=== PATIENT | female | born 1995 | race Two or more races ===

== ENCOUNTER 2016-11-28 21:41 | Emergency (ER) | payer SELFPAY ==
[~2016-11-28] VITALS: Ht 157.5 cm; Wt 51.0 kg
[~2016-11-28 21:41] MED LIST: NAPR60CR2
[2016-11-28] MEDS ORDERED: SODIUM CHLORIDE 0.9% 1,000 ML IV ONE (22:56)
[2016-11-28 23:35] LABS: BASOPHILS % 0.6 % (0.0-2.0); EOSINOPHILS % 2.3 % (0.0-5.0); HEMOGLOBIN. 11.2 g/dL (12.0-16.0); LYMPHOCYTES % 45.4 % (20.0-50.0); MEAN CORPUSCULAR HEMOGLOBIN 30.4 pg (28.0-32.0); MEAN CORPUSCULAR VOLUME 89.7 fL (81.0-99.0); MEAN PLATELET VOLUME 8.2 fl (7.4-10.4); MONOCYTES % 9.5 % (2.0-8.0); NEUTROPHILS % 42.2 % (40.0-76.0); PLATELET 295 x1000/uL (130-400); RED BLOOD CELL COUNT 3.68 mill/uL (4.2-5.4); RED CELL DISTRIBUTION WIDTH 13.5 % (11.6-14.6)
[2016-11-28 23:36] LABS: B-HCG QUANTITATIVE < 1 mIU/mL (<3); CARBON DIOXIDE 25 mEq/L (21-32); CHLORIDE 109 mEq/L (98-107)
[2016-11-29 00:03] LABS: HCG SCREEN NEGATIVE
[2016-11-29] MEDS ORDERED: KETOROLAC 30MG/ML VIAL IV ONE (02:00)
[2016-11-29 02:25] VITALS: BP 118/78
== END 2016-11-29 02:25 | disposition home or self-care (01) ==
LOC: ER 21:41
DX: N93.9 Abnormal uterine and vaginal bleeding, unspecified (principal); R10.2 Pelvic and perineal pain; F17.200 Nicotine dependence, unspecified, uncomplicated; Z98.890 Other specified postprocedural states
CPT/HCPCS: 36415; 76830; 76856; 80048; 84702; 84703; 85025; 86850; 86900; 86901; 96361; 96374; 99285; J1885; J7030; Z7610

== ENCOUNTER 2017-05-09 08:00 | Emergency (ER) | payer SELFPAY ==
[~2017-05-09] VITALS: Ht 165.1 cm; Wt 57.0 kg
[2017-05-09] MEDS ORDERED: KETOROLAC 30MG/ML VIAL IM ONE (10:45)
[2017-05-09 10:58] VITALS: BP 120/93
== END 2017-05-09 11:19 | disposition home or self-care (01) ==
LOC: ER 08:17
DX: M54.9 Dorsalgia, unspecified (principal); R11.2 Nausea with vomiting, unspecified; R19.7 Diarrhea, unspecified
CPT/HCPCS: 96372; 99283; J1885

== ENCOUNTER 2018-03-12 19:51 | Emergency (ER) | payer MEDICAID ==
[~2018-03-12] VITALS: Ht 157.5 cm; Wt 46.0 kg
[2018-03-13 01:02] LABS: BASOPHILS % 0.5 % (0.0-2.0); EOSINOPHILS % 1.4 % (0.0-5.0); HEMATOCRIT. 36.9 % (36.0-48.0); HEMOGLOBIN. 12.3 g/dL (12.0-16.0); LYMPHOCYTES % 38.4 % (20.0-50.0); MEAN CORPUSCULAR HEMOGLOBIN 31.7 pg (28.0-32.0); MEAN PLATELET VOLUME 8.3 fl (7.4-10.4); MONOCYTES % 9.7 % (2.0-8.0); PLATELET 323 x1000/uL (130-400); RED BLOOD CELL COUNT 3.89 mill/uL (4.2-5.4); RED CELL DISTRIBUTION WIDTH 14.2 % (11.6-14.6)
[2018-03-13 01:12] LABS: CHLORIDE 106 mEq/L (98-107)
[2018-03-13 01:19] LABS: HCG SCREEN NEGATIVE
[2018-03-13 03:13] VITALS: BP 115/66
== END 2018-03-13 03:18 | disposition home or self-care (01) ==
LOC: ER 19:51
DX: R06.02 Shortness of breath (principal); R10.0 Acute abdomen; R03.0 Elevated blood-pressure reading, without diagnosis of hypertension; F17.210 Nicotine dependence, cigarettes, uncomplicated; Z71.6 Tobacco abuse counseling
CPT/HCPCS: 36415; 71045; 81025; 83880; 84484; 84703; 85379; 93005; 99285; 99406

== ENCOUNTER 2018-04-13 14:07 | Emergency (ER) | payer MEDICAID ==
[~2018-04-13] VITALS: Ht 162.6 cm; Wt 55.0 kg
[2018-04-13] MEDS ORDERED: ACETAMINOPHEN 650MG/20.3ML UDC PO ONE (15:00)
[2018-04-13] MEDS ORDERED: LIDOCAINE HCL/EPINEPHRINE 1%-EPI 1:100,000 20 ML VIAL INFIL ONE (15:00)
[2018-04-13] MEDS ORDERED: HYDROCODONE/ACETAMINOPHEN 5/325MG TABLET PO ONE (15:00)
[2018-04-13 16:34] LABS: HCG SCREEN NEGATIVE
[2018-04-13] MEDS ORDERED: MORPHINE SULFATE 10 MG/ML CPJ IM ONE (19:00)
[2018-04-13] MEDS ORDERED: KETOROLAC 60MG/2ML VIAL IM ONE (19:00)
[2018-04-13 22:50] VITALS: BP 102/63
== END 2018-04-13 22:50 | disposition home or self-care (01) ==
LOC: ER 14:07
DX: S02.2XXA Fracture of nasal bones, initial encounter for closed fracture (principal); S01.81XA Laceration without foreign body of other part of head, initial encounter; M54.2 Cervicalgia; Z98.890 Other specified postprocedural states; Y08.89XA Assault by other specified means, initial encounter; Y93.89 Activity, other specified; Y92.89 Other specified places as the place of occurrence of the external cause; Y99.8 Other external cause status
CPT/HCPCS: 12011; 70486; 70490; 71045; 84703; 96372; 99284; J1885; J2270; J3490

== ENCOUNTER 2018-12-11 11:11 | Emergency (ER) | payer MEDICAID ==
[~2018-12-11] VITALS: Ht 157.5 cm; Wt 46.0 kg
[2018-12-11] MEDS ORDERED: IBUPROFEN 600MG TABLET PO ONE (12:45)
[2018-12-11 13:10] VITALS: BP 98/69
== END 2018-12-11 13:27 | disposition home or self-care (01) ==
LOC: ER 11:11
DX: R23.8 Other skin changes (principal); S60.464A Insect bite (nonvenomous) of right ring finger, initial encounter; W57.XXXA Bitten or stung by nonvenomous insect and other nonvenomous arthropods, initial encounter; Y93.89 Activity, other specified; Y92.89 Other specified places as the place of occurrence of the external cause; F17.210 Nicotine dependence, cigarettes, uncomplicated
CPT/HCPCS: 99282

== ENCOUNTER 2018-12-12 16:20 | Emergency (ER) | payer MEDICAID ==
[~2018-12-12] VITALS: Ht 167.6 cm; Wt 48.0 kg
[2018-12-12 16:38] VITALS: BP 108/80
== END 2018-12-12 18:35 | disposition home or self-care (01) ==
LOC: ER 16:20
DX: T88.0XXA Infection following immunization, initial encounter (principal); L03.113 Cellulitis of right upper limb
CPT/HCPCS: 99283